=== PATIENT | male | born 1970 | race Caucasian/White ===

== ENCOUNTER 2021-09-09 08:21 | Outpatient (CLI) | payer OTHER, SELFPAY ==
--- NOTE | ~2021-09-09 | CT_ITS ---
EXAMINATION: CT lung screening DATE: 09/09/2021 08:39 INDICATION: History of tobacco dependence. TECHNIQUE: Computed tomography (CT) of the chest was performed without intravenous contrast. The dose -length product was 158.61 mGy-cm. Automated exposure control and iterative reconstruction technique were employed. COMPARISON: None FINDINGS: Heart size is normal. No significant pleural or pericardial effusion. No thoracic lymphaden opathy. The upper abdomen is unremarkable. No significant pleural or pericardial effusion. Mild wedge -shaped appearance to lower thoracic vertebra, likely chronic or developmental. No acute osseous abno rmality. There is a 7 mm right upper lobe nodule. There is a 5 mm left upper lobe nodule, image 17. T here is a 9 mm right apical nodule, image 16. There is mild emphysema. No endobronchial lesions. Ther e is biapical pleural thickening/scarring. There is 2 mm right lower lobe nodule. There is a 3 mm lef t lower lobe nodule. No pneumothorax. IMPRESSION: 1. LUNG RADS 4A-SUSPICIOUS: Recommend follow-up [address] chest or pet/CT scan. Reviewed, dictated and finalized at location A. GETTER IMPRESSION: 1. LUNG RADS 4A-SUSPICIOUS: Recommend follow-up [address] chest or pe t/CT scan.
[2021-09-09 08:58] LABS: Basophils Percent Auto 0.5 % (0.2-1.2); Eosinophils Absolute Auto 0.1 K/mm3 (0-0.3); Eosinophils Percent Auto 1.7 % (0-4.4); Hematocrit 45.3 % (42.0-52.0); Hemoglobin 16.2 g/dL (14.0-18.0); Immature Granulocyte Absolute 0.05 K/mm3 (0.00-0.031); Immature Granulocyte Percent A 0.6 % (0-0.5); Immature Platelet Fraction Pct 6.3 % (0.9-11.2); Lymphocytes Absolute Auto 2.22 K/mm3 (0.9-3.2); Lymphocytes Percent Auto 28.6 % (18.3-44.2); Mean Corpuscular HGB Conc 35.8 g/dl (32-36); Mean Corpuscular Hemoglobin 31.2 pg (26-34); Mean Corpuscular Volume 87.1 fl (80-100); Mean Platelet Volume 11.3 fl (7.4-10.4); Monocytes Absolute Auto 0.6 K/mm3 (0.1-0.6); Monocytes Percent Auto 7.9 % (2.6-8.5); Neutrophils Absolute Auto 4.7 K/mm3 (1.3-6.7); Neutrophils Percent Auto 60.7 % (45.5-73.1); Platelet Count Result 134 k/mm3 (150-375); White Blood Count 7.8 K/mm3 (4.5-10.0)
[2021-09-09 09:25] LABS: LDL Cholesterol Direct 131 mg/dL
[2021-09-09 09:40] LABS: Prostate Specific Antigen 0.6 ng/mL (< OR = 4.0)
[2021-09-09 09:49] LABS: Alanine Aminotransferase 116 U/L (4-50); Albumin Level 4.8 g/dL (3.5-5.1); Alkaline Phosphatase 81 U/L (38-126); Anion Gap 10 mmol/L (8-16); Aspartate Amino Transferase 41 U/L (17-59); Bilirubin,Total 0.8 mg/dL (0.2-1.3); Blood Urea Nitrogen 27 mg/dL (9-20); Calcium 9.6 mg/dL (8.4-10.2); Carbon Dioxide 27 mmol/L (22-30); Chloride 93 mmol/L (98-107); Cholesterol 232 mg/dL (0-200); Estimated Glomerular Filt Rate > 60; Glucose 511 mg/dL (65-110); HDL Direct 59 mg/dL; Potassium 5.2 mmol/L (3.4-5.0); Sodium 130 mmol/L (137-145); Triglycerides 235 mg/dL (<150)
== END 2021-09-09 08:22 | disposition home or self-care (01) ==
PROVIDERS: PCP Family Medicine; Visit Provider Family Medicine
DX: F17.210 Nicotine dependence, cigarettes, uncomplicated (principal); Z12.5 Encounter for screening for malignant neoplasm of prostate; R91.8 Other nonspecific abnormal finding of lung field
CPT/HCPCS: 36415; 71271; 80053; 80061; 84153; 85025; 85055; G0103

== ENCOUNTER 2021-09-09 12:22 | Emergency (ER) | payer OTHER, SELFPAY ==
[2021-09-09 13:11] VITALS: BP 155/102; PULSE 67; RESP 16; TEMP 36.3; O2SAT 100
[2021-09-09 13:16] LABS: Glucose Point of Care 404 mg/dl (65-105)
[2021-09-09 15:46] VITALS: BP 143/92; PULSE 64; TEMP 36.2; O2SAT 100
[2021-09-09 16:32] VITALS: BP 160/106; PULSE 65; RESP 14; O2SAT 99
--- NOTE | 2021-09-09 16:38 | PC.NURSE ---
Patient presents to ED after primary visit today. patient informed glucose was 511 and to present to ER. Patient reports polydipsia, denies polyuria, nausea, and vomiting. Reports not being seen by primary care in several years, however, recently turned 51 and decided he should have a regular provider again. patient reports hx of hypertension.
[2021-09-09 16:42] LABS: Glucose Point of Care 313 mg/dl (65-105)
[2021-09-09] MEDS: SODIUM CHLORIDE 0.9% IV 1,000 ML 999 ML IV CONT (16:59)
--- NOTE | 2021-09-09 17:04 | ED.GENADULT ---
HPI - General Adult General Chief complaint: Recheck/Abnormal Lab/Rx Stated complaint: High blood sugar. Time Seen by Provider: 09/09/21 16:34 Source: patient and RN notes reviewed History of Present Illness HPI narrative: Patient is 51 y/o male complaining of high blood sugar. He states that he had routine outpatient labs this morning and he was told by his doctor that his BS was in 500s and he was instructed to go to ED for further evaluation. He states that he feels well. He has no nausea, vomiting, SOB, chest pain, blurred vision or frequent urination. He has not been diagnosed with diabetes previously. Related Data Allergies Allergy/AdvReac Type Severity Reaction Status Date / Time No Known Allergies Allergy Verified 09/21/17 12:56 Review of Systems Constitutional: Constitutional: Denies chills, Denies fever(s), Denies headache(s) and Denies weakness Eyes: Eyes: Denies blurry vision ENT: Denies headache(s) and Denies neck pain Cardiovascular: Cardiovascular: Denies chest pain and Denies dyspnea Respiratory: Respiratory: Denies cough and Denies dyspnea Gastrointestinal: Gastrointestinal: Denies abdominal pain, Denies diarrhea, Denies nausea and Denies vomiting Genitourinary: Genitourinary: Denies hematuria and Denies dysuria Musculoskeletal: Musculoskeletal: Denies back pain and Denies neck pain Neurologic: Denies headache(s) and Denies weakness PMFSH Past Medical History Medical History Adjustment reaction with anxiety and depression Sixth [abducent] nerve palsy, right eye Ureteral calculi Family History Family History Father Family history of lung cancer Social History Social History Smoking packs per day: 1 Smoking cigarettes per day: 20.0 Years smoked: 25 Smoking pack-years: 25.00 Smoking status: Current every day smoker Second hand tobacco smoke exposure: Yes Alcohol intake: current Drinks per week: 7 Substance use: current Substance use type: marijuana Gender identity (if verbalized by the patient): Male Exam Const: General: no acute distress and well developed Orientation/consciousness: oriented to person, oriented to place, oriented to time and patient oriented x3 HENMT: Head: normocephalic Ears: external ears normal General nose exam: Normal external nose present Eyes: General: appearance normal, both eyes and all related structures Conjunctivae: conjunctivae normal Neck: Neck: normal visual inspection and full ROM Chest: Chest palpation & inspection: normal inspection of the chest and no tenderness Resp: Effort & Inspection: normal respiratory effort Auscultation: clear to auscultation bilaterally Cardio: Rate: regular rate Rhythm: regular rhythm GI: GI Palp: No abdominal tenderness and Yes Soft to palpation Skin: General skin exam: normal color and turgor normal Neuro: General: oriented to person, oriented to place, oriented to time and patient oriented x3 Cognition (Neuro): normal cognition Extrem: General: normal to inspection, full ROM and no pedal edema Psych: Appearance: grossly normal Mental Status: mental status grossly normal Affect: normal affect Course Consultations Consultation #1: Discussed with Dr. Pemberton, who agrees with plan for discharge on Metformin. Date: 09/09/21 Time: 18:52 Vital Signs Vital signs: Vital Signs Temperature 36.3 C L 09/09/21 13:11 Pulse Rate 67 09/09/21 13:11 Respiratory Rate 16 09/09/21 13:11 Blood Pressure 155/102 H 09/09/21 13:11 Pulse Oximetry 100 09/09/21 13:11 Temperature 36.2 C L 09/09/21 15:46 Pulse Rate 65 09/09/21 16:32 Respiratory Rate 14 09/09/21 16:32 Blood Pressure 160/106 H 09/09/21 16:32 Pulse Oximetry 99 09/09/21 16:32 Medical Decision Making Vital Signs Vital Signs: Vital Signs Temperature 3
[2021-09-09] MEDS: INSULIN HUMAN REGULAR (*BKC) 100 UNITS/ML 10 UNITS IV PUSH (17:06)
[2021-09-09 17:38] LABS: Glucose Point of Care 245 mg/dl (65-105)
[2021-09-09 18:19] LABS: Anion Gap 7 mmol/L (8-16); Blood Urea Nitrogen 24 mg/dL (9-20); Calcium 8.8 mg/dL (8.4-10.2); Carbon Dioxide 28 mmol/L (22-30); Chloride 99 mmol/L (98-107); Estimated CRCL calculation 95 ml/min; Estimated Glomerular Filt Rate > 60; Glucose 212 mg/dL (65-110); Potassium 3.8 mmol/L (3.4-5.0); Sodium 134 mmol/L (137-145)
== END 2021-09-09 20:15 | disposition home or self-care (01) ==
PROVIDERS: Emergency Provider Emergency Medicine; PCP Family Medicine
DX: R73.9 Hyperglycemia, unspecified (principal); F17.210 Nicotine dependence, cigarettes, uncomplicated
CPT/HCPCS: 36415; 80048; 82948; 96361; 96374; 99284; J1815; J7030

== ENCOUNTER → 2021-11-22 00:04 | Outpatient (CLI) | payer OTHER, SELFPAY ==
[2021-11-22 11:40] LABS: SARS-CoV-2 RNA PCR Negative
== END ==
PROVIDERS: PCP Family Medicine; Visit Provider Internal Medicine Gastroenterology
DX: Z01.812 Encounter for preprocedural laboratory examination (principal); Z20.822 Contact with and (suspected) exposure to COVID-19
CPT/HCPCS: C9803; U0003; U0005

== ENCOUNTER 2021-11-26 00:11 | Day surgery (SDC) | payer OTHER, SELFPAY ==
[2021-11-17 13:26] VITALS: BMI 25.1
--- NOTE | 2021-11-25 22:04 | PM.HPGS ---
History of Present Illness History of Present Illness Consent: Risks, benefits, and alternatives have been discussed and questions answered. Patient agrees to proceed with procedure. Chief complaint: neoplasm screening Narrative: Connor King is a 51 year old male referred for coloncncer screening Review of Systems Review of Systems: All systems reviewed & are unremarkable except as noted in HPI and below PMFSH Past Medical History Medical History Adjustment reaction with anxiety and depression Alcohol abuse Anxiety associated with depression Cigarette nicotine dependence without complication quit 08.26.[address] Essential hypertension Lung nodule Mixed hyperlipidemia Obstructive sleep apnea of adult Sixth [abducent] nerve palsy, right eye Type 2 diabetes mellitus with hyperglycemia Ureteral calculi Family History Family History Father Family history of lung cancer Social History Social History Smoking packs per day: 1 Smoking cigarettes per day: 20.0 Years smoked: 25 Smoking pack-years: 25.00 Smoking status: Former smoker Second hand tobacco smoke exposure: Yes Alcohol intake: current Drinks per week: 7 Substance use: current Substance use type: marijuana Gender identity (if verbalized by the patient): Male Meds Home Medications and Allergies Home Medications Medication Instructions Recorded Confirmed Type lisinopril 20 mg tablet 20 mg PO DAILY #90 tablet 08/26/21 11/26/21 Rx paroxetine HCl 12.5 mg 12.5 mg PO QAM #90 tablet 08/26/21 11/26/21 Rx tablet,extended release 24 hr flash glucose scanning reader #1 ea 09/10/21 11/26/21 Rx flash glucose sensor #6 ea 09/10/21 11/26/21 Rx atorvastatin 10 mg tablet 10 mg PO QHS #90 tablet 09/17/21 11/26/21 Rx metformin 1,000 mg tablet 1,000 mg PO BID #180 tablet 10/09/21 11/26/21 Rx nebivolol [Bystolic] 10 mg PO DAILY 11/17/21 11/26/21 History Allergies Allergy/AdvReac Type Severity Reaction Status Date / Time No Known Allergies Allergy Verified 11/26/21 10:16 Exam Const: General: alert Orientation/consciousness: patient oriented x3 Resp: Auscultation: clear to auscultation bilaterally Cardio: Rhythm: regular rhythm GI: GI Palp: Yes Soft to palpation and No Tenderness to palpation present (GI) Neuro: General: patient oriented x3 Assessment and Plan Assessment and plan (1) Colon cancer screening: Code(s): Z12.11 - Encounter for screening for malignant neoplasm of colon Status: Acute Assessment and Plan: Colonoscopy with possible biopsy or polypectomy or cautery or injection of substances.
--- NOTE | 2021-11-26 09:07 | WPDANESEPPF ---
Anes - Initial Pre Proc Eval Procedure: Operation Date: 11/26/21 11:30 Proposed Procedures p Screening Colonoscopy - Nikolay Eason MD Date/Time: 11/26/21 09:07 Surgeon: Nikolay Eason MD Pre Op Diagnosis: neoplasm screening Patient Data Age: 51 Gender: M Height: 1.83 m Weight: 84 kg Allergies Allergy/AdvReac Type Severity Reaction Status Date / Time No Known Allergies Allergy Verified 11/26/21 10:16 Home Medications Medication Instructions Recorded Confirmed Type lisinopril 20 mg tablet 20 mg PO DAILY #90 tablet 08/26/21 11/26/21 Rx paroxetine HCl 12.5 mg 12.5 mg PO QAM #90 tablet 08/26/21 11/26/21 Rx tablet,extended release 24 hr flash glucose scanning reader #1 ea 09/10/21 11/26/21 Rx flash glucose sensor #6 ea 09/10/21 11/26/21 Rx atorvastatin 10 mg tablet 10 mg PO QHS #90 tablet 09/17/21 11/26/21 Rx metformin 1,000 mg tablet 1,000 mg PO BID #180 tablet 10/09/21 11/26/21 Rx nebivolol [Bystolic] 10 mg PO DAILY 11/17/21 11/26/21 History Patient hx anesthesia problems: none Family hx anesthesia problems: none Results Review: All pre-operative results and documents have been reviewed as part of the pre-operative evaluation. [facility] Past Medical History Medical History (Updated 11/26/21 @ 09:08 by Jorge Dawson MD) Adjustment reaction with anxiety and depression Alcohol abuse Anxiety associated with depression Cigarette nicotine dependence without complication quit 08.26.[address] Essential hypertension Lung nodule Mixed hyperlipidemia Obstructive sleep apnea of adult Sixth [abducent] nerve palsy, right eye Type 2 diabetes mellitus with hyperglycemia Ureteral calculi Family History Family History Father Family history of lung cancer Social History Social History (Updated 09/17/21 @ 11:07 by Ni Mckeon CMA) Smoking packs per day: 1 Smoking cigarettes per day: 20.0 Years smoked: 25 Smoking pack-years: 25.00 Smoking status: Former smoker Second hand tobacco smoke exposure: Yes Alcohol intake: current Drinks per week: 7 Substance use: current Substance use type: marijuana Gender identity (if verbalized by the patient): Male Anes - Eval Final PreProcedure Day of Procedure 11/26/21 09:07 Patient weight: normal Heart: regular rate and rhythm Lungs: clear to auscultation and normal air movement Airway: Mallampati scale class II Neurological: alert and oriented Last oral intake: >/= 8 hours ASA classification: III Emergent: no Anesthetic plan: proceed Anesthesia type and monitoring: general GIVS Results Review: All pre-operative results and documents have been reviewed as part of the pre-operative evaluation. Informed Consent: The patient's anesthetic plan and its attendant risks and benefits were discussed with the patient/family/POA. Questions were solicited and answers provided to the satisfaction of the patient/family/POA.
[2021-11-26 10:07] VITALS: BP 133/83; PULSE 69; RESP 18; TEMP 36.2; O2SAT 95; BMI 23.6
[2021-11-26] MEDS: LACTATED RINGERS 1,000 ML 150 ML IV CONT (10:30)
[2021-11-26 10:33] LABS: Glucose Point of Care 123 mg/dl (65-105)
[2021-11-26 11:32] VITALS: BP 113/72; PULSE 67; RESP 21; O2SAT 99
[2021-11-26 11:42] VITALS: BP 114/82; PULSE 71; RESP 18; O2SAT 100
[2021-11-26 11:52] VITALS: BP 117/88; PULSE 60; RESP 14; O2SAT 100
== END 2021-11-26 12:01 | disposition home or self-care (01) ==
PROVIDERS: PCP Family Medicine; Visit Provider Internal Medicine Gastroenterology
PROC: 0DJD8ZZ Inspection of Lower Intestinal Tract, Via Natural or Artificial Opening Endoscopic (ICD-10-PCS; CPT 45378; principal; 2021-11-26 11:30)
DX: Z12.11 Encounter for screening for malignant neoplasm of colon (principal); D12.3 Benign neoplasm of transverse colon; I10 Essential (primary) hypertension; E78.2 Mixed hyperlipidemia; E11.9 Type 2 diabetes mellitus without complications; G47.33 Obstructive sleep apnea (adult) (pediatric); G58.8 Other specified mononeuropathies; F43.23 Adjustment disorder with mixed anxiety and depressed mood; J43.9 Emphysema, unspecified; Z79.84 Long term (current) use of oral hypoglycemic drugs; Z87.891 Personal history of nicotine dependence; F12.90 Cannabis use, unspecified, uncomplicated
CPT/HCPCS: 45385; 82948; 88305; C9803; J2704; J7120; U0003; U0005